=== PATIENT | female | born 1980 | race Caucasian/White ===

== ENCOUNTER → 2018-06-29 18:51 | Outpatient (CLI) | payer MEDICAID, SELFPAY ==
[2018-06-29 19:15] LABS: Basophils % 0.5 % (0.1-2.0); Eosinophils % 0.1 % (0.1-12.0); Hematocrit 44.2 % (37.0-47.0); Hemoglobin 14.3 g/dL (12.2-16.2); Lymphocytes # 1.7 K/mm3 (0.7-4.5); Lymphocytes % 37.3 % (10-50); Mean Corpuscular HGB Conc 32.4 g/dL (31.8-35.4); Mean Corpuscular Volume 98.9 fl (81-99); Mean Platelet Volume 8.2 fl (7.4-10.4); Monocytes # 0.2 K/mm3 (0.1-1.0); Monocytes % 4.8 % (1.7-9.3); Neutrophils # 2.7 K/mm3 (1.8-7.8); Neutrophils % 57.4 % (37.0-80.0); Platelet Count 164 K/mm3 (142-424); Red Blood Count 4.47 M/mm3 (4.20-5.40); Red Cell Distribution Width 13.6 % (11.5-17.5); White Blood Count 4.7 K/mm3 (4.8-10.8)
[2018-06-29 19:28] LABS: Alanine Aminotransferase 38 U/L (12-78); Alkaline Phosphatase 77 U/L (46-116); Aspartate Amino Transferase 16 U/L (15-37); Bilirubin,Total 0.5 mg/dL (0.2-1.0); Blood Urea Nitrogen 11 mg/dL (7-18); Calcium 8.6 mg/dL (8.5-10.1); Carbon Dioxide 26 mmol/L (21.0-32.0); Chloride 102 mmol/L (98-107); Cholesterol 167 mg/dL (140-200); Estimated Glomerular Filt Rate 70 ml/min (>60); GFR (African American) 85 ML/MIN (>60); HDL Cholesterol 56 mg/dL (29-89); LDL Cholesterol 86 mg/dL (0-130); Sodium 137 mmol/L (136-145); Triglycerides 125 mg/dL (30-200); VLDL Cholesterol 25 mg/dL (0-40)
[2018-06-29 19:42] LABS: Glucose 91 mg/dL (74-106)
[2018-06-29 19:49] LABS: Amphetamine/Metha Screen,Urine Negative ng/mL (<1000); Barbiturates Screen,Urine Negative ng/mL (<200); Benzodiazepines Screen,Urine Negative ng/mL (<200); Cannabinoid Screen,Urine Negative ng/mL (<50); Cocaine Screen,Urine Negative ng/mL (<300); Methadone Screen,Urine Negative ng/mL (<300); Opiate Screen,Urine Negative ng/mL (<300); Phencyclidine Screen,Urine Negative ng/mL (<25)
[2018-07-01 21:28] LABS: FSH 7.8 mIU/mL (.); Progesterone 0.1 ng/mL (.)
[2018-07-05 06:48] LABS: Estrogen 83 pg/mL (.)
== END ==
PROVIDERS: Visit Provider Emergency Medicine
DX: I10 Essential (primary) hypertension (principal); Z79.899 Other long term (current) drug therapy
CPT/HCPCS: 80053; 80061; 80305; 82672; 83001; 83002; 84144; 84439; 84443; 85025

== ENCOUNTER → 2018-07-27 17:46 | Outpatient (CLI) | payer MEDICAID, SELFPAY ==
[2018-07-27 19:56] LABS: Amphetamine/Metha Screen,Urine Negative ng/mL (<1000); Barbiturates Screen,Urine Negative ng/mL (<200); Benzodiazepines Screen,Urine Negative ng/mL (<200); Cannabinoid Screen,Urine Negative ng/mL (<50); Cocaine Screen,Urine Negative ng/mL (<300); Methadone Screen,Urine Negative ng/mL (<300); Opiate Screen,Urine Negative ng/mL (<300); Phencyclidine Screen,Urine Negative ng/mL (<25)
[2018-08-03 17:12] LABS: Opiates Negative ng/mL (Cutoff=100)
== END ==
PROVIDERS: Visit Provider Emergency Medicine
DX: Z79.899 Other long term (current) drug therapy (principal)
CPT/HCPCS: 80305; 80361; G0480

== ENCOUNTER → 2018-09-24 18:36 | Outpatient (CLI) | payer MEDICAID, SELFPAY ==
[2018-09-24 19:33] LABS: Amphetamine/Metha Screen,Urine Negative ng/mL (<1000); Barbiturates Screen,Urine Negative ng/mL (<200); Benzodiazepines Screen,Urine Negative ng/mL (<200); Cannabinoid Screen,Urine Negative ng/mL (<50); Cocaine Screen,Urine Negative ng/mL (<300); Methadone Screen,Urine Negative ng/mL (<300); Opiate Screen,Urine Negative ng/mL (<300); Phencyclidine Screen,Urine Negative ng/mL (<25)
[2018-10-01 08:24] LABS: Opiates Negative ng/mL (Cutoff=100)
== END ==
PROVIDERS: Visit Provider Emergency Medicine
DX: Z79.899 Other long term (current) drug therapy (principal); M54.9 Dorsalgia, unspecified
CPT/HCPCS: 80305; 80361; G0480

== ENCOUNTER → 2018-10-24 13:36 | Outpatient (CLI) | payer MEDICAID, SELFPAY ==
[2018-10-24 14:50] LABS: Anion Gap 14.3 mEq/L (5-15); Blood Urea Nitrogen 10 mg/dL (7-18); Calcium 8.4 mg/dL (8.5-10.1); Carbon Dioxide 23 mmol/L (21.0-32.0); Chloride 104 mmol/L (98-107); Creatinine,Serum 1.23 mg/dL (0.55-1.02); Estimated Glomerular Filt Rate 49 ml/min (>60); Free T4 (Free Thyroxine) 1.09 ng/dl (0.76-1.46); GFR (African American) 59 ML/MIN (>60); Glucose 115 mg/dL (74-106); Potassium 4.3 mmoL/L (3.5-5.1); Sodium 137 mmol/L (136-145); Thyroid Stimulating Hormone 2.64 uIU/ml (0.358-3.740)
[2018-10-24 16:28] LABS: Amphetamine/Metha Screen,Urine Negative ng/mL (<1000); Barbiturates Screen,Urine Negative ng/mL (<200); Benzodiazepines Screen,Urine Positive ng/mL (<200); Cannabinoid Screen,Urine Negative ng/mL (<50); Cocaine Screen,Urine Negative ng/mL (<300); Methadone Screen,Urine Negative ng/mL (<300); Opiate Screen,Urine Positive ng/mL (<300); Phencyclidine Screen,Urine Negative ng/mL (<25)
== END ==
PROVIDERS: Visit Provider Emergency Medicine
DX: Z79.899 Other long term (current) drug therapy (principal); E03.9 Hypothyroidism, unspecified
CPT/HCPCS: 80048; 80305; 84439; 84443

== ENCOUNTER → 2018-11-01 10:16 | Outpatient (CLI) | payer MEDICAID, SELFPAY ==
[2018-11-01 14:00] LABS: Blood Urea Nitrogen 8 mg/dL (7-18); Calcium 8.9 mg/dL (8.5-10.1); Carbon Dioxide 25 mmol/L (21.0-32.0); Chloride 104 mmol/L (98-107); Creatinine,Serum 0.88 mg/dL (0.55-1.02); Estimated Glomerular Filt Rate 72 ml/min (>60); GFR (African American) 87 ML/MIN (>60); Glucose 94 mg/dL (74-106); Sodium 142 mmol/L (136-145)
[2018-11-01 15:08] LABS: Hemoglobin A1C 4.1 % (0.0-7.0)
== END ==
PROVIDERS: PCP Emergency Medicine; Visit Provider Emergency Medicine
DX: R06.02 Shortness of breath (principal); E03.9 Hypothyroidism, unspecified; M54.9 Dorsalgia, unspecified; Z79.899 Other long term (current) drug therapy
CPT/HCPCS: 36415; 80048; 83036; 94060

== ENCOUNTER → 2018-11-01 10:56 | Outpatient (CLI) | payer MEDICAID, SELFPAY | PROVIDERS: Visit Provider Emergency Medicine | DX: R73.9 Hyperglycemia, unspecified (principal); R79.89 Other specified abnormal findings of blood chemistry | CPT/HCPCS: 36415; 80048; 83036 ==

== ENCOUNTER → 2018-11-07 07:53 | Outpatient (CLI) | payer MEDICAID, SELFPAY ==
--- NOTE | 2018-11-07 07:56 | MR_ITS ---
MR lumbar spine wo con, MR 3-d myelogram/MRCP HISTORY: Low back pain X years, Bilateral leg pain, numbness and tingling at times. ITS.REASON: back pain ORDERING PHYSICIAN: Kodak Beebe MD PATIENT AGE: 38 years Comparison: None TECHNIQUE: Standard multiplanar multiecho sequences are performed without contrast. 3-D MIP and myelographic images are also rendered and reviewed FINDINGS: IMPRESSION: There is a moderate degree of motion artifact on the sagittal T2-weighted images. The spinal cord ends at the L1 level. L1-L2, L2-L3, and [id number] appearance. L4-5: There is minimal bulging disc laterally and mild facet hypertrophy with mild bilateral foraminal narrowing. L5-S1: Degenerative disc disease with bulging disc. There is a small right paracentral disc herniation which abuts the anteromedial aspect of the right S1 nerve root. There is mild bilateral foraminal narrowing. Type I endplate changes are present at this level. IMPRESSION: 1. Bulging disc with mild bilateral foraminal narrowing at L4-L5. 2. Degenerative disc disease with bulging disc and a small right paracentral disc herniation at L5-S1 with mild bilateral foraminal narrowing and type I endplate changes
== END ==
PROVIDERS: PCP Emergency Medicine; Visit Provider Emergency Medicine
DX: M54.9 Dorsalgia, unspecified (principal)
CPT/HCPCS: 72148; 76376

== ENCOUNTER → 2018-12-24 13:21 | Outpatient (CLI) | payer MEDICAID, SELFPAY ==
[2018-12-24 14:58] LABS: Amphetamine/Metha Screen,Urine Negative ng/mL (<1000); Barbiturates Screen,Urine Negative ng/mL (<200); Benzodiazepines Screen,Urine Negative ng/mL (<200); Cannabinoid Screen,Urine Negative ng/mL (<50); Cocaine Screen,Urine Negative ng/mL (<300); Methadone Screen,Urine Negative ng/mL (<300); Opiate Screen,Urine Positive ng/mL (<300); Phencyclidine Screen,Urine Negative ng/mL (<25)
== END ==
PROVIDERS: Visit Provider Emergency Medicine
DX: Z79.899 Other long term (current) drug therapy (principal)
CPT/HCPCS: 80305

== ENCOUNTER → 2020-01-27 13:41 | Outpatient (CLI) | payer MEDICAID, SELFPAY ==
[2020-01-27 14:25] LABS: Free T4 (Free Thyroxine) 1.21 ng/dl (0.78-2.19)
[2020-01-27 15:09] LABS: Thyroid Stimulating Hormone 1.69 uIU/mL (0.465-4.68)
== END ==
PROVIDERS: Visit Provider Emergency Medicine
DX: E03.9 Hypothyroidism, unspecified (principal)
CPT/HCPCS: 84439; 84443

== ENCOUNTER 2020-06-16 11:31 | Emergency (ER) | payer MEDICAID, SELFPAY ==
[2020-06-16 11:39] VITALS: BP 175/110; PULSE 114; RESP 18; TEMP 36.7; O2SAT 99; BMI 29.1
--- NOTE | 2020-06-16 11:39 | HMH.EDGENADL ---
ED Disposition Clinical Impression: Substance abuse, Left against medical advice Psychosis Qualifiers: Psychosis type: unspecified psychosis type Qualified Code(s): F29 - Unspecified psychosis not due to a substance or known physiological condition Bipolar disorder Qualifiers: Active/Remission status: remission status unspecified Qualified Code(s): F31.9 - Bipolar disorder, unspecified Disposition: Left Against Medical Advice Condition on Discharge: Fair Referrals: Kodak Beebe MD [Primary Care Provider] - - Critical Care Critical Care Time: No Attestation: On , the high probability of a clinically significant, sudden or life threatening deterioration of the following system(s) required my full and direct attention, intervention and personal management. The time I documented below is in addition to time spent performing reported procedures but includes the following listed in this critical care notation. Medical Decision Making - Medical Records Medical records reviewed: Yes: I reviewed the patient's medical records. MR Comment: Collective notification document shows patient has been to [facility] several times. December 31, 2019 lists suicidal ideation, cocaine abuse, alcohol abuse, bipolar disorder, anxiety disorder, as well as essential hypertension and Crohn's disease, hepatitis C, COPD. Visit on April 11, 2020 with his chief complaint as psych. Emergency department visit on December 19 2019 lists altered mental status as chief complaint. - Jan Inquiry Pt receiving controlled substance: No Vital Signs: 06/16/20 11:39 06/16/20 12:57 Temperature 98.1 F Temperature Source Oral Pulse Rate [Right Brachial] 114 H 107 H Respiratory Rate 18 20 Blood Pressure [Right Arm] 175/110 H 156/102 H Blood Pressure Mean [Right Arm] 131 120 Blood Pressure Source [Right Arm] Automatic Cuff Automatic Cuff Blood Pressure Position [Right Arm] Sitting Sitting 02 Sat by Pulse Oximetry 99 99 Oxygen Delivery Method Room Air - Lab Data Lab results reviewed: Yes: I reviewed the patient's lab results. Lab Results 06/16/20 11:45: Ammonia 16 06/16/20 11:46: SARS-CoV-2 IgG Ab (Rapid) Negative, SARS-CoV-2 IgM Ab (Rapid) Negative 06/16/20 11:56: Urine Opiates Screen Negative, Urine Methadone Screen Negative, Ur Barbituates Screen Negative, Ur Phencyclidine Scrn Negative, Ur Amphetamines Screen Negative, U Benzodiazepines Scrn Negative, Urine Cocaine Screen Negative, U Marijuana (THC) Screen Negative 06/16/20 12:30: WBC 5.3, RBC 5.18, Hgb 16.3 H, Hct 49.8 H, MCV 96.2, MCH 31.4 H, MCHC 32.7, RDW 13.3, Plt Count 229, MPV 8.2, Neut % (Auto) 68.3, Lymph % (Auto) 26.9, [place] % (Auto) 3.5, Eos % (Auto) 0.2, Baso % (Auto) 1.1, Neut # (Auto) 3.6, Lymph # (Auto) 1.4, [place] # (Auto) 0.2, Eos # (Auto) 0.0, Baso # (Auto) 0.1 06/16/20 12:30: Sodium 139, Potassium 3.7, Chloride 104, Carbon Dioxide 26, Anion Gap 12.7, BUN 7, Creatinine 0.70, Estimated Creat Clear 134, Estimated GFR 93, Est GFR ( Amer) 112, Glucose 119 H, Calcium 9.9, Total Bilirubin 0.6, AST 36, ALT 22, Alkaline Phosphatase 113, Total Creatine Kinase 40, CK-MB (CK-2) 0.3, CK-MB (CK-2) Rel Index 0.8, Troponin I < 0.01, C-Reactive Protein 2.3, Total Protein 9.4 H, Albumin 5.2 H, Globulin 4.2 H, Albumin/Globulin Ratio 1.2, Salicylates < 1.0 L, Acetaminophen < 10 L 06/16/20 12:30: Lactate 0.8 06/16/20 12:30: Plasma/Serum Alcohol < 10 06/16/20 12:30: ESR 8 06/16/20 12:30: Serum HCG, Qual Negative Result diagrams: 06/16/20 12:30 06/16/20 12:30 Orders (Tests/Meds): ED MEDICATIONS Discontinued Medications Generic Name Dose Route Start Last Admin Trade Name Freq PRN Reason Stop Dose Admin Ondansetron HCl 4 mg 06/16/20 11:55 06/16/20 12:55 Ondansetron 4mg/2ml Vial IV 06/16/20 11:56 4 mg ONCE ONE Administration ORDERS Category Date Time Status Blood Culture Stat Micro 06/16/20 11:45 Received - Radiology Data #1 Image(s): Ingrid
--- NOTE | 2020-06-16 11:46 | CT_ITS ---
PROCEDURE: CT HEAD/BRAIN WO CON CLINICAL INDICATION: altered mental status Altered mental status, altered level of consciousness, confusion, disorientation COMPARISON: No exams were available for comparison TECHNIQUE: Axial images obtained. All CT scans at the facility use one or more dose reduction, viz: automated exposure control, ma/kV adjustment per patient size (including targeted exams where dose is matched to indication, i.e. head), or iterative reconstruction technique. FINDINGS: No midline shift, mass effect, intracranial hemorrhage, hydrocephalus, or extra-axial fluid collection is evident. The calvarium has an unremarkable appearance. No mastoid effusion. No sinus air-fluid level. IMPRESSION: No acute intracranial finding Dictated by: Dallas Morrow MD 06/16/2020 14:01 Dallas Morrow MD in OV 06/16/2020 14:01
--- NOTE | 2020-06-16 11:46 | XR_ITS ---
PROCEDURE: XR CHEST 2V CLINICAL HISTORY: AMS The Altered mental status, altered level of consciousness, confusion, disorientation COMPARISON: No exams were available for comparison FINDINGS: The cardiomediastinal silhouette and pulmonary vascularity are within normal limits. The lungs are clear without infiltrates, suspicious nodules, or pleural effusions. No acute bony abnormalities. IMPRESSION: No acute findings. Dictated by: Dallas Morrow 06/16/2020 15:51 Dallas Morrow in [facility] 06/16/2020 15:51
[2020-06-16 12:14] LABS: Benzodiazepines Screen,Urine Negative ng/ml (<200)
[2020-06-16 12:15] LABS: Amphetamine/Metha Screen,Urine Negative ng/ml (<1000); Barbiturates Screen,Urine Negative ng/ml (<200)
[2020-06-16 12:16] LABS: Cannabinoid Screen,Urine Negative ng/ml (<50)
[2020-06-16 12:17] LABS: Cocaine Screen,Urine Negative ng/ml (<300); Methadone Screen,Urine Negative ng/ml (<300)
[2020-06-16 12:18] LABS: Opiate Screen,Urine Negative ng/ml (<300); Phencyclidine Screen,Urine Negative ng/ml (<25)
[2020-06-16 12:47] LABS: Basophils # 0.1 K/mm3 (0-0.2); Basophils % 1.1 % (0.1-2.0); Eosinophils % 0.2 % (0.1-12.0); Hematocrit 49.8 % (37.0-47.0); Hemoglobin 16.3 g/dL (12.2-16.2); Lymphocytes # 1.4 K/mm3 (0.7-4.5); Lymphocytes % 26.9 % (10-50); Mean Corpuscular HGB Conc 32.7 g/dL (31.8-35.4); Mean Corpuscular Hemoglobin 31.4 pg (27.0-31.2); Mean Corpuscular Volume 96.2 fl (81-99); Mean Platelet Volume 8.2 fl (7.4-10.4); Monocytes # 0.2 K/mm3 (0.1-1.0); Monocytes % 3.5 % (1.7-9.3); Neutrophils # 3.6 K/mm3 (1.8-7.8); Neutrophils % 68.3 % (37.0-80.0); Platelet Count 229 K/mm3 (142-424); Red Blood Count 5.18 M/mm3 (4.20-5.40); Red Cell Distribution Width 13.3 % (11.5-17.5); White Blood Count 5.3 K/mm3 (4.8-10.8)
[2020-06-16 12:53] LABS: Chloride 104 mmol/L (98-107)
[2020-06-16 12:54] LABS: Potassium 3.7 mmoL/L (3.5-5.1); Sodium 139 mmol/L (136-145)
[2020-06-16 12:56] LABS: Alanine Aminotransferase 22 U/L (12-78); Alkaline Phosphatase 113 U/L (38-126); Aspartate Amino Transferase 36 U/L (14-36); Bilirubin,Total 0.6 mg/dl (0.2-1.3); Blood Urea Nitrogen 7 mg/dl (7-17); Creatinine Clearance Estimated 134 mL/min (50-200); Estimated Glomerular Filt Rate 93 ml/min (>60); GFR (African American) 112 ML/MIN (>60)
[2020-06-16 12:57] VITALS: BP 156/102; PULSE 107; RESP 20; O2SAT 99
[2020-06-16 12:57] LABS: Albumin Level 5.2 g/dl (3.5-5.0); Albumin/Globulin Ratio 1.2 (1.1-1.8); Anion Gap 12.7 mEq/L (5-15); Calcium 9.9 mg/dl (8.4-10.2); Carbon Dioxide 26 mmol/L (22.0-30.0); Creatine Kinase 40 U/L (30-135); Globulin 4.2 g/dL (1.3-3.2); Glucose 119 mg/dl (74-100); Total Protein,Serum 9.4 g/dl (6.3-8.2)
[2020-06-16 12:58] LABS: Acetaminophen < 10 ug/ml (10-30); Lactic Acid 0.8 mmol/L (0.7-2.1); Salicylate < 1.0 mg/dL (2.0-20.0)
[2020-06-16 12:59] LABS: Ethyl Alcohol < 10 mg/dl (0-10)
[2020-06-16 13:03] LABS: C-Reactive Protein 2.3 mg/L (0-4)
--- NOTE | 2020-06-16 13:03 | ECG_ITS ---
APPROVED REPORT Exam: Resting ECG HR:96 bpm ECG Measurements Heart Rate 96 AXES MT 104 P 54 QRSd 74 QRS 76 QT 334 T 58 QTc 421 Conclusion Sinus rhythm with short MT Otherwise normal ECG Electronically signed by : Hola Hernandez, 06/17/2020 05:29:12
[2020-06-16 13:05] LABS: CKMB Relative Index 0.8 U/L (0-4.0); Creatine Kinase MB 0.3 ng/ml (0.0-2.03)
[2020-06-16 13:07] LABS: Coronavirus 19 IgG Antibody Negative (Negative); Coronavirus 19 IgM Antibody Negative (Negative)
[2020-06-16 13:10] LABS: Troponin I < 0.01 ng/ml (0.00-0.034)
[2020-06-16 13:18] LABS: HCG Qualitative, Serum Negative (Negative)
[2020-06-16 13:28] LABS: Erythrocyte Sedimentation Rate 8 mm/hr (0-20)
[2020-06-16 13:35] LABS: Ammonia 16 umol/L (9-30)
--- NOTE | 2020-06-16 15:30 | PC.NURSE ---
Pt refuses v/s and will not put b/p cuff and pulse ox on
--- NOTE | 2020-06-16 15:39 | PC.NURSE ---
pt continues to try to leave room, Fransisca west here to speak with Dr Villegas.
--- NOTE | 2020-06-16 15:51 | PC.NURSE ---
[facility]ansisc[facility] Cruz [facility]
--- NOTE | 2020-06-16 16:30 | PC.NURSE ---
Faxed all records over to [facility] for review
--- NOTE | 2020-06-16 16:52 | PC.NURSE ---
[facility] called back advising they were not able to accept pt, that pt had been very agitated at there facility before and had left AMA, they recommended [facility]. Dr Villegas asked to try [facility] assessment with [facility].
--- NOTE | 2020-06-16 16:56 | PC.NURSE ---
Pt continues to refuse v/s
--- NOTE | 2020-06-16 16:59 | HMH.BHCONS ---
*Admission Date: 06/16/20 *Reason for consult:: psychiatric illnesses *History of present illness: I talked to patient at her bedside; she was in room 8. I was asked to come down give recommendations related to her condition. -she is oriented to self and place -she knows that it is June and it is 2019 -she is agitated -constantly fidgety in the room -she states that she wants to go to rehab -she admits to using meth -she states that she does shoot this up -she cannot remember the last use -she did pull up her arms to show me [place] on her arms -these are from the nurses getting blood on her from earlier today -she states that she did complete the program at [facility] but this is not long enough for her -she states that she needs to go some place that is about a year long -I did educate her on the fact that she will have to start at a short term place; then transfer from there -she is agreeable to do this -I did not do a full psychiatric evaluation -she is willing to sign herself in -this is the best option for her right now RECOMMENDATIONS: 1. Transfer to [facility] TIME IN; 154 TIME OUT: [address] [facility] History Medical History: Reports:: Anxiety, Chronic Obstructive Pulmonary Disease (COPD), Depression, Gastroesophageal Reflux Disease(GERD), Hepatitis, Hypertension, Kidney Stones *Have you ever received a pneumonia vaccine?: No *Have you received a flu vaccine this season?: Yes Other Medical History: Reports: Thyroid Disease Other Surgeries: Yes: Colonoscopy, , Other Amputation: No Fractures: No - *Social History Smoking Status: Current every day smoker Tobacco Type: cigarettes # Packs/Day (cigarettes): 1 Alcohol Intake: current Alcohol Intake Frequency:: a few times a week Substance Use Type: IV drugs, opiates, methamphetamine, crack/cocaine, heroin *Occupational Status:: unemployed Housing: homeless *Travel in the last 8 weeks: None - Psychiatric History Pschychiatric History:: Reports:: Anxiety, Depression Family Hx:: Cancer, Heart Attack Meds Home Medications Medication Instructions Recorded Confirmed Type folic acid 1 mg tablet 1 mg PO DAILY 06/18/18 06/16/20 History ondansetron 4 mg oral soluble film 4 mg PO TID PRN 06/18/18 06/16/20 History dicyclomine 10 mg capsule 10 mg PO QID 06/05/19 06/16/20 History sulfasalazine 500 mg tablet 0.5 g PO .8 times a day tab 06/05/19 06/16/20 History hydroxyzine HCl 50 mg tablet 50 mg PO TID tab 09/27/19 06/16/20 History quetiapine 200 mg tablet 200 mg PO QHS tab 10/16/19 06/16/20 History promethazine 25 mg tablet 25 mg PO .[id number] PRN #15 tab 10/22/19 06/16/20 Rx diclofenac sodium 1 % topical gel 1 gram TOPICAL DAILY 02/17/20 06/16/20 History hydrocodone 5 mg-acetaminophen 325 1 tab PO BID PRN #14 tab 04/24/20 06/16/20 Rx mg tablet benzonatate 200 mg capsule 200 mg PO TID PRN 7 Days #21 cap 05/07/20 06/16/20 Rx cefdinir 300 mg capsule 300 mg PO Q12H 10 Days #20 cap 05/07/20 06/16/20 Rx Albuterol Sulfate [Proventil Hfa] See Rx Instructions .ROUTE .COMPLEX 06/16/20 History Buspirone HCl [Buspirone 15 mg See Rx Instructions .ROUTE .COMPLEX 06/16/20 History Tablets] Cyclobenzaprine HCl See Rx Instructions .ROUTE .COMPLEX 06/16/20 History [Cyclobenzaprine 10mg Tab*] Docusate Sodium 100 mg PO DAILY 06/16/20 History Fluticasone Propion/Salmeterol See Rx Instructions .ROUTE .COMPLEX 06/16/20 History [Fluticasone-Salmeterol 250-50] Gabapentin 600 mg PO QID 06/16/20 History Levothyroxine Sodium [Synthroid See Rx Instructions .ROUTE .COMPLEX 06/16/20 History 25mcg (0.025mg) tablet] Nicotine [Nicotine Patch See Rx Instructions .ROUTE .COMPLEX 06/16/20 History 21mg/24hrs] OXcarbazepine [Oxcarbazepine] See Rx Instructions .ROUTE .COMPLEX 06/16/20 History Pantoprazole Sodium See Rx Instructions .ROUTE .COMPLEX 06/16/20 History Ropinirole HCl See Rx Instructions .ROUTE .COMPLEX 12/08/20 History Umeclidinium [place] [Incruse 1 inh INHAL
--- NOTE | 2020-06-16 17:10 | PC.NURSE ---
Calling [facility] to set up zoom assessment
--- NOTE | 2020-06-16 17:17 | PC.NURSE ---
Spoke with Kae the damage prevention coordinator at the [facility] and advises she will get pt info out to one of the assessors and someone will give us a call shortly.
--- NOTE | 2020-06-16 17:46 | PC.NURSE ---
Pt came out into the Er and asked what was going and advised she was ready to leave. I explained to patient that we had contacted [facility] and they had declined her admission at this time. Advised her we had contacted [facility] and was waiting on them to call back to complete a zoom assessment. Pt yelled she was leaving and didn't want to go anywhere anymore. I advised pt to go back into her room so I could remover her IV and then she could leave. Pt went back into the room and ripped her IV out and was bleeding all over the room. Went in to assist patient with bandaging her arm and she started slinging her arm all over the room. Saying she wasn't crazy and she was leaving. Pt finally calmed down and let me wrap her arm in coban. Pt grabbed her bag of medicine and proceeded to walk out of the ER entrance. ER staff and ER MD witnessed this event.
--- NOTE | 2020-06-16 17:55 | PC.NURSE ---
[facility] called and I advised her pt had became upset and decided to leave.
[2020-06-16 17:57] VITALS: BP 0/0; PULSE 87; RESP 16; TEMP 36.6
== END 2020-06-16 17:58 | disposition left against medical advice (07) ==
PROVIDERS: Emergency Provider Emergency Medicine; PCP Emergency Medicine
DX: F29 Unspecified psychosis not due to a substance or known physiological condition (principal); F23 Brief psychotic disorder; F31.64 Bipolar disorder, current episode mixed, severe, with psychotic features; I10 Essential (primary) hypertension; J44.9 Chronic obstructive pulmonary disease, unspecified; K21.9 Gastro-esophageal reflux disease without esophagitis; F17.210 Nicotine dependence, cigarettes, uncomplicated; Z01.84 Encounter for antibody response examination; Z79.899 Other long term (current) drug therapy
CPT/HCPCS: 70450; 71046; 80053; 80305; 80329; 82140; 82550; 82553; 83605; 84484; 84703; 85025; 85651; 86140; 86328; 87040; 93005; 99283; J2405

== ENCOUNTER 2020-06-17 04:33 | Emergency (ER) | payer MEDICAID, SELFPAY ==
[2020-06-17 04:39] VITALS: BP 175/109; PULSE 124; RESP 16; TEMP 37.2; O2SAT 97; BMI 25.7
--- NOTE | 2020-06-17 04:50 | HMH.EDMCLR ---
ED Disposition Clinical Impression: Medical clearance for incarceration Disposition: Home, Self-Care Condition on Discharge: Fair Instructions: DI for Drug Abuse and Drug Addiction Additional Instructions: see pcp for follow up Referrals: PCP,Estela [Primary Care Provider] - - Critical Care Critical Care Time: No Attestation: On 06/17/20, the high probability of a clinically significant, sudden or life threatening deterioration of the following system(s) required my full and direct attention, intervention and personal management. The time I documented below is in addition to time spent performing reported procedures but includes the following listed in this critical care notation. Medical Decision Making - Medical Records Medical records reviewed: Yes: I reviewed the patient's medical records. - Jan Inquiry Pt receiving controlled substance: No Vital Signs: 06/17/20 04:39 Temperature 99 F Temperature Source Oral Pulse Rate [Right] 124 H Respiratory Rate 16 Blood Pressure [Right Arm] 175/109 H Blood Pressure Mean [Right Arm] 131 Blood Pressure Source [Right Arm] Automatic Cuff Blood Pressure Position [Right Arm] Sitting 02 Sat by Pulse Oximetry 97 Oxygen Delivery Method Room Air Medical Clearance HPI - General Chief complaint: Medical Clearance Stated complaint: Medical Clearance Time Seen by Provider: 06/17/20 04:50 Mode of Arrival: Ambulatory Source of Information: Patient, Medical Record Limitations: No Limitations Description of Symptoms (Recalled from ER Triage Doc. by RN): pt brought in for medical clearance by police. pt has shot up amphetamines and says her stomach hurts. - History of Present Illness HPI Narrative: pt awake but did not answer questions - no evid of pain or other c/o MD complaint: medical clearance requested Onset (ago): hour(s) Reason for Medical Clearance: medical condition Place: street Alleged Intoxication: Yes Traumatic Symptoms: denies traumatic injury Associated Symptoms: other (no sx reported ) Treatments Prior to Arrival: none Home medications: Home Medications Medication Instructions Recorded Confirmed folic acid 1 mg tablet 1 mg PO DAILY 06/18/18 06/16/20 ondansetron 4 mg oral soluble film 4 mg PO TID PRN 06/18/18 06/16/20 dicyclomine 10 mg capsule 10 mg PO QID 06/05/19 06/16/20 sulfasalazine 500 mg tablet 0.5 g PO .8 times a day tab 06/05/19 06/16/20 hydroxyzine HCl 50 mg tablet 50 mg PO TID tab 09/27/19 06/16/20 quetiapine 200 mg tablet 200 mg PO QHS tab 10/16/19 06/16/20 diclofenac sodium 1 % topical gel 1 gram TOPICAL DAILY 02/17/20 06/16/20 Albuterol Sulfate [Proventil Hfa] See Rx Instructions .ROUTE .COMPLEX 06/16/20 Buspirone HCl [Buspirone 15 mg See Rx Instructions .ROUTE .COMPLEX 06/16/20 Tablets] Cyclobenzaprine HCl See Rx Instructions .ROUTE .COMPLEX 06/16/20 [Cyclobenzaprine 10mg Tab*] Docusate Sodium 100 mg PO DAILY 06/16/20 Fluticasone Propion/Salmeterol See Rx Instructions .ROUTE .COMPLEX 06/16/20 [Fluticasone-Salmeterol 250-50] Gabapentin 600 mg PO QID 06/16/20 Levothyroxine Sodium [Synthroid See Rx Instructions .ROUTE .COMPLEX 06/16/20 25mcg (0.025mg) tablet] Nicotine [Nicotine Patch See Rx Instructions .ROUTE .COMPLEX 06/16/20 21mg/24hrs] OXcarbazepine [Oxcarbazepine] See Rx Instructions .ROUTE .COMPLEX 06/16/20 Pantoprazole Sodium See Rx Instructions .ROUTE .COMPLEX 06/16/20 Ropinirole HCl See Rx Instructions .ROUTE .COMPLEX 06/16/20 Umeclidinium [place] [Incruse 1 inh INHALATION DAILY 06/16/20 Ellipta] Previous Rx's Medication Instructions Recorded promethazine 25 mg tablet 25 mg PO .[id number] PRN #15 tab 10/22/19 hydrocodone 5 mg-acetaminophen 325 1 tab PO BID PRN #14 tab 04/24/20 mg tablet benzonatate 200 mg capsule 200 mg PO TID PRN 7 Days #21 cap 05/07/20 cefdinir 300 mg capsule 300 mg PO Q12H 10 Days #20 cap 05/07/20 Allergies/Adverse reactions: Allergies Allergy/AdvRe
[2020-06-17 04:58] VITALS: BP 169/89; PULSE 125; RESP 16; TEMP 37.3
== END 2020-06-17 05:05 | disposition home or self-care (01) ==
PROVIDERS: Emergency Provider Emergency Medicine
DX: F19.10 Other psychoactive substance abuse, uncomplicated (principal); R10.30 Lower abdominal pain, unspecified; F41.8 Other specified anxiety disorders; K21.9 Gastro-esophageal reflux disease without esophagitis; E03.9 Hypothyroidism, unspecified; I10 Essential (primary) hypertension; J44.9 Chronic obstructive pulmonary disease, unspecified; F17.210 Nicotine dependence, cigarettes, uncomplicated; Z87.442 Personal history of urinary calculi; Z88.5 Allergy status to narcotic agent; Z01.84 Encounter for antibody response examination
CPT/HCPCS: 99282

== ENCOUNTER → 2020-09-16 18:40 | Outpatient (CLI) | payer MEDICAID, SELFPAY | PROVIDERS: Visit Provider Emergency Medicine | DX: R82.90 Unspecified abnormal findings in urine (principal) | CPT/HCPCS: 87086 ==

== ENCOUNTER → 2020-11-11 12:07 | Outpatient (CLI) | payer MEDICAID, SELFPAY ==
[2020-11-11 13:33] LABS: Coronavirus 19 IgG Antibody Positive (Negative); Coronavirus 19 IgM Antibody Negative (Negative)
== END ==
PROVIDERS: Visit Provider Urology
DX: Z01.812 Encounter for preprocedural laboratory examination (principal); Z20.822 Contact with and (suspected) exposure to COVID-19; R33.9 Retention of urine, unspecified
CPT/HCPCS: 36415; 86328

== ENCOUNTER 2020-11-13 09:58 | Day surgery (SDC) | payer MEDICAID, SELFPAY ==
[2020-11-10 12:25] VITALS: BMI 33.9
[2020-11-13 11:27] LABS: Urine Pregnancy, HCG Qual. Negative (Negative)
[2020-11-13 11:34] VITALS: BP 150/111; PULSE 108; RESP 16; TEMP 36.5; O2SAT 94
--- NOTE | 2020-11-13 13:07 | HMH.ANESCL ---
[facility] Anesthesia Checklist - Patient Identification Patient Identification: Arm Band - Structural Data Admitted From: Home Planned Operative Procedure/s: Cystoscopy Consent for Planned Operative Procedure(s) Verified: Yes Verified Documents: Surgical Consent, History and Physical - NPO Status Verified Time NPO: 00:00 - Additional verifications Anesthesia Reactions: No Hx Blood Transfusions: No Blood Transfusion Reaction: No - Airway Assessment C-Spine Mobility Assessed: Yes (mp2) TMJ Mobility Assessed: Yes Dentition: Good Dentition - Neurological Assessment Level of Consciousness: Awake, Alert - Anesthesia Plan Anesthesia Risk discussed: Yes Anesthesia Plan: Verified ASA Class: III Anesthesia Type: MAC [facility] History Medical History: Reports:: Anxiety, Chronic Obstructive Pulmonary Disease (COPD), Depression, Gastroesophageal Reflux Disease(GERD), Hepatitis, Hypertension, Kidney Stones, Seizures (DRUG RELATED) Denies:: Cancer, Diabetes Mellitus Type 1, Diabetes Mellitus Type 2, Internal Pacemaker, MRSA *Have you ever received a pneumonia vaccine?: No *Have you received a flu vaccine this season?: No Other Medical History: Reports: Thyroid Disease. Denies: Blood Transfusion Reaction Anesthesia experience/problems:: nac Other Surgeries: Yes: Colonoscopy, , Other. No: Pacemaker Amputation: No Fractures: No - *Social History Last grade of school completed: GED Smoking Status: Current every day smoker Tobacco Type: cigarettes # Packs/Day (cigarettes): 2 Alcohol Intake: current Alcohol Intake Frequency:: a few times a month Substance Use Type: crack/cocaine, opiates, painkillers, IV drugs, methamphetamine, prescription drug *Occupational Status:: unemployed Housing: house Household Members: family *Travel in the last 8 weeks: None - Psychiatric History Pschychiatric History:: Reports:: Anxiety, Depression Family Hx:: Cancer, Heart Attack
[2020-11-13 13:20] VITALS: BP 126/76; PULSE 101; RESP 18; TEMP 37.1; O2SAT 93
--- NOTE | 2020-11-13 13:29 | P.OP_ITS ---
Date of procedure: 11/13/20 Pre-op Diagnosis:: Urinary slowing, dysuria, incomplete bladder emptying Post-op Diagnosis:: Urethral stenosis Procedure performed:: Cystoscopy with urethral dilation Surgeon:: Wilfred Tai MD CONSTRUCTION CONTROLLER:: Micah Kirby Anesthesia: MAC Estimated blood loss (mL): 0 Clinical Note:: 40-year-old white female with history of urethral stenosis now with symptoms of urinary slowing, dysuria and post void residual of 242 cc. Operative findings:: There is evidence of urethral stenosis. The bladder was within normal limits however. Operative note:: Patient taken to the operating room after informed consent was obtained. She was placed on the operating table in the supine position and monitored anesthesia care administered. She was then placed into the dorsal lithotomy position and prepped and draped in the standard surgical fashion. The urethral meatus appeared stenotic and the 22 Estonian scope would not pass easily. The urethra was dilated from 22-30 Estonian with female dilators. Little trauma was noted with a little bit of bleeding with the 28 and 30 Estonian sounds. The 22 Estonian cystoscope then passed into the urethra and into the bladder. The bladder was examined in a systematic fashion. There is no evidence of mucosal abnormalities, stones, trabeculation or cellule formation. The ureteral orifices in their normal anatomic position and of normal shape and caliber. The bladder neck showed some urethral fronds that are benign. The urethra was normal visually. The bladder drained the scope removed. Urojet placed into the urethra for comfort. Patient tolerated procedure well without complication. I am going to place her on a course of bethanechol 25 mg twice a day. I will see her back in 1 month in follow-up. Condition: stable Disposition: same day Specimens:: None Complications:: None
[2020-11-13 13:35] VITALS: BP 127/92; PULSE 100; RESP 18; O2SAT 95
[2020-11-13 13:42] VITALS: TEMP 43
[2020-11-13 13:50] VITALS: BP 120/79; PULSE 98; RESP 18; O2SAT 100
== END 2020-11-13 13:50 | disposition home or self-care (01) ==
LOC: OR 10:00
PROVIDERS: PCP Emergency Medicine; Visit Provider Urology
PROC: 0TJB8ZZ Inspection of Bladder, Via Natural or Artificial Opening Endoscopic (ICD-10-PCS; CPT 52000; principal; 2020-11-13 11:30)
DX: N35.92 Unspecified urethral stricture, female; F41.9 Anxiety disorder, unspecified; J44.9 Chronic obstructive pulmonary disease, unspecified; F32.9 Major depressive disorder, single episode, unspecified; K21.9 Gastro-esophageal reflux disease without esophagitis; I10 Essential (primary) hypertension; K75.9 Inflammatory liver disease, unspecified; G40.89 Other seizures; E07.9 Disorder of thyroid, unspecified; Z87.442 Personal history of urinary calculi; Z72.0 Tobacco use; F14.90 Cocaine use, unspecified, uncomplicated; F11.90 Opioid use, unspecified, uncomplicated; F19.90 Other psychoactive substance use, unspecified, uncomplicated
CPT/HCPCS: 52281; 81025; 96374

== ENCOUNTER → 2020-12-14 17:48 | Outpatient (CLI) | payer MEDICAID, SELFPAY ==
[2020-12-14 19:39] LABS: Amphetamine/Metha Screen,Urine Negative ng/ml (<1000)
[2020-12-14 19:40] LABS: Benzodiazepines Screen,Urine Negative ng/ml (<200)
[2020-12-14 19:41] LABS: Barbiturates Screen,Urine Negative ng/ml (<200); Cannabinoid Screen,Urine Negative ng/ml (<50)
[2020-12-14 19:42] LABS: Cocaine Screen,Urine Negative ng/ml (<300)
[2020-12-14 19:43] LABS: Methadone Screen,Urine Negative ng/ml (<300); Opiate Screen,Urine Negative ng/ml (<300)
[2020-12-14 19:44] LABS: Phencyclidine Screen,Urine Negative ng/ml (<25)
== END ==
PROVIDERS: Visit Provider Emergency Medicine
DX: Z79.899 Other long term (current) drug therapy (principal)
CPT/HCPCS: 80305

== ENCOUNTER → 2021-11-30 15:12 | Outpatient (CLI) | payer MEDICAID, SELFPAY ==
--- NOTE | 2021-11-30 15:13 | MM_ITS ---
PROCEDURE INFORMATION: Exam: MG Bilateral Screening 3D Mammography Exam date and time: 11/30/2021 3:09 PM Age: 41 years old Clinical indication: Screening examination TECHNIQUE: Imaging protocol: Bilateral Screening tomosynthesis and 2D mammography including computer-aided detection (CAD) when performed. COMPARISON: No relevant prior studies available. FINDINGS: MAMMOGRAPHY: Breast composition: There are scattered areas of fibroglandular density. Mass: None. Architectural distortion: None. Calcifications: No suspicious calcifications. Asymmetric density: None. Skin thickening: None. Axillary adenopathy: None. IMPRESSION: No mammographic evidence of malignancy. Annual screening is recommended unless otherwise clinically indicated. ASSESSMENT: BI-RADS Category 1: Negative
--- NOTE | 2021-11-30 15:27 | XR_ITS ---
FINAL REPORT TECHNIQUE: Bone densitometry calculations of the lumbar spine and left hip were obtained. CLINICAL HISTORY: .hx of depo provera mcc use FINDINGS: Using L1-4, the bone mineral density of the spine is 0.882 g/cm2, corresponding to T-score of -1.5. Measurements consistent with osteopenia. Using the left hip, the bone mineral density of the femoral neck is 0.856 g/cm2, corresponding to a T-score of -0.7. Measurements consistent with normal bone mineral density. NOTE: T-score: Standard deviation compared with peak bone mass of young adult mean. *Following the recommendations of the International Society of Bone densitometry, classification of hip BMD is based on the lower of two T-scores; total hip or femoral neck. IMPRESSION: Diminished bone mineral density of the lumbar spine consistent with osteopenia. Normal bone mineral density of the left hip. FRAX 10 year fracture risk is 3.3 % for major osteoporotic fracture. Reviewed, Interpreted and Dictated by Janee Valentin MD Transcribed by Grace Savage Authenticated by Janee Valentin MD on 11/30/2021 04:59:02 PM [facility]
== END ==
PROVIDERS: PCP Emergency Medicine; Visit Provider Emergency Medicine
DX: Z12.31 Encounter for screening mammogram for malignant neoplasm of breast (principal); M85.89 Other specified disorders of bone density and structure, multiple sites
CPT/HCPCS: 77063; 77067; 77080

== ENCOUNTER 2021-12-26 18:59 | Emergency (ER) | payer MEDICAID, SELFPAY ==
[2021-12-26 20:09] VITALS: BP 0/0; PULSE 0; RESP 0; TEMP -17.7; TEMP 0; O2SAT 0
== END 2021-12-27 00:07 | disposition left against medical advice (07) ==
PROVIDERS: Emergency Provider Emergency Medicine
DX: Z53.21 Procedure and treatment not carried out due to patient leaving prior to being seen by health care provider (principal)

== ENCOUNTER 2021-12-26 20:20 | Emergency (ER) | payer MEDICAID, SELFPAY ==
[2021-12-26 23:58] VITALS: BP 0/0; PULSE 0; RESP 0; TEMP -17.7; TEMP 0; O2SAT 0
== END 2021-12-27 00:01 | disposition left against medical advice (07) ==
PROVIDERS: Emergency Provider Emergency Medicine; PCP Emergency Medicine
DX: Z53.21 Procedure and treatment not carried out due to patient leaving prior to being seen by health care provider (principal)

== ENCOUNTER 2021-12-26 22:51 | Emergency (ER) | payer MEDICAID, SELFPAY ==
[2021-12-26 22:53] VITALS: BP 121/88; PULSE 120; RESP 20; TEMP 37.2; O2SAT 99; BMI 34.9
[2021-12-26 23:19] VITALS: BMI 34.4
--- NOTE | 2021-12-26 23:21 | CT_ITS ---
PROCEDURE INFORMATION: Exam: CT Abdomen And Pelvis Without Contrast Exam date and time: 12/27/2021 12:11 AM Age: 41 years old Clinical indication: Abdominal pain; Localized; Lower; Additional info: Vaginal low abd complaints TECHNIQUE: Imaging protocol: Computed tomography of the abdomen and pelvis without contrast. Radiation optimization: All CT scans at this facility use at least one of these dose optimization techniques: automated exposure control; mA and/or kV adjustment per patient size (includes targeted exams where dose is matched to clinical indication); or iterative reconstruction. COMPARISON: FINDINGS: Liver: Hepatic steatosis. Gallbladder and bile ducts: Normal. No calcified stones. No ductal dilation. Pancreas: Normal. No ductal dilation. Spleen: Upper limits of normal spleen size. Adrenal glands: Normal. No mass. Kidneys and ureters: Normal. No hydronephrosis. Stomach and bowel: Unremarkable. No obstruction. No mucosal thickening. Appendix: Unremarkable appendix. Intraperitoneal space: Unremarkable. No free air. No significant fluid collection. Vasculature: Mild atherosclerotic changes of the arteries. Lymph nodes: Unremarkable. No enlarged lymph nodes. Urinary bladder: Unremarkable as visualized. Reproductive: Unremarkable as visualized. Bones/joints: Unremarkable. No acute fracture. Soft tissues: Tiny fat containing umbilical hernia. IMPRESSION: 1. No acute findings. 2. Hepatic steatosis.
[2021-12-26 23:26] LABS: Microscopic, Urine URINE MICROSCOPIC (MICROSCOPIC)
--- NOTE | 2021-12-26 23:26 | PC.NURSE ---
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 Dispatch was called and they advised they would call them.
[2021-12-26 23:29] LABS: Appearance,Urine CLEAR (Clear); Bilirubin,Urine Negative (Negative); Blood, Urine Negative (Negative); Color,Urine YELLOW (Yellow); Glucose,Urine (UA) Negative (Negative); Ketones,Urine Negative (Negative); Leukocyte Esterase,Urine Negative (Negative); Nitrate,Urine Negative (Negative); PH,Urine 6.5 (5.0-8.5); Protein,Urine Negative (Negative); Specific Gravity, Urine <= 1.005 (1.005-1.030); Urobilinogen,Urine 0.2 EU/dl (0.2)
--- NOTE | 2021-12-26 23:29 | PC.NURSE ---
Shilpa at dispatch advised she called the post and they would let their troopers know.
[2021-12-26 23:32] LABS: Urine Pregnancy, HCG Qual. Negative (Negative)
[2021-12-26 23:36] LABS: RBC,Urine Occasional #/hpf (0-3)
[2021-12-26 23:40] LABS: Barbiturates Screen,Urine Negative ng/ml (<200); Benzodiazepines Screen,Urine Positive ng/ml (<200)
[2021-12-26 23:41] LABS: Amphetamine/Metha Screen,Urine Negative ng/ml (<1000)
[2021-12-26 23:42] LABS: Cannabinoid Screen,Urine Negative ng/ml (<50); Cocaine Screen,Urine Negative ng/ml (<300)
[2021-12-26 23:43] LABS: Methadone Screen,Urine Negative ng/ml (<300)
[2021-12-26 23:44] LABS: Opiate Screen,Urine Negative ng/ml (<300); Phencyclidine Screen,Urine Negative ng/ml (<25)
--- NOTE | 2021-12-26 23:44 | PC.NURSE ---
pt states that she has a feeling something is wrong and when I stuck her for her IV she pulled away and took the needle out of my hand and out of her arm.
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
[2021-12-27 00:21] LABS: Basophils # 0.2 K/mm3 (0-0.2); Basophils % 3.5 % (0.1-2.0); Eosinophils # 0.1 K/mm3 (0.0-0.4); Eosinophils % 2.1 % (0.1-12.0); Hemoglobin 15.1 g/dL (12.2-16.2); Lymphocytes # 1.7 K/mm3 (0.7-4.5); Lymphocytes % 25.9 % (10-50); Mean Corpuscular HGB Conc 34.2 g/dL (31.8-35.4); Mean Corpuscular Hemoglobin 29.1 pg (27.0-31.2); Mean Corpuscular Volume 85.1 fl (81-99); Mean Platelet Volume 7.7 fl (7.4-10.4); Monocytes # 0.3 K/mm3 (0.1-1.0); Monocytes % 3.9 % (1.7-9.3); Neutrophils # 4.3 K/mm3 (1.8-7.8); Neutrophils % 64.6 % (37.0-80.0); Platelet Count 226 K/mm3 (142-424); Red Blood Count 5.17 M/mm3 (4.20-5.40); Red Cell Distribution Width 14.3 % (11.5-17.5); White Blood Count 6.6 K/mm3 (4.8-10.8)
[2021-12-27 00:27] LABS: Alanine Aminotransferase 25 U/L (12-78); Albumin Level 4.6 g/dl (3.5-5.0); Albumin/Globulin Ratio 1.1 (1.1-1.8); Alkaline Phosphatase 96 U/L (38-126); Amylase 56 U/L (30-110); Aspartate Amino Transferase 34 U/L (14-36); Bilirubin,Total 0.8 mg/dl (0.2-1.3); Blood Urea Nitrogen 6 mg/dl (7-17); Calcium 9.3 mg/dl (8.4-10.2); Carbon Dioxide 27 mmol/L (22.0-30.0); Chloride 101 mmol/L (98-107); Creatinine Clearance Estimated 194 mL/min (50-200); Estimated Glomerular Filt Rate 110 ml/min (>60); GFR (African American) 133 ML/MIN (>60); Globulin 4.1 g/dL (1.3-3.2); Glucose 100 mg/dl (74-100); Lipase 57 U/L (23-300); Sodium 138 mmol/L (136-145); Total Protein,Serum 8.7 g/dl (6.3-8.2)
[2021-12-27 00:33] LABS: C-Reactive Protein 9.6 mg/L (0-4)
--- NOTE | 2021-12-27 00:42 | PC.NURSE ---
[employer] at
[2021-12-27 00:44] LABS: Erythrocyte Sedimentation Rate 17 mm/hr (0-20)
--- NOTE | 2021-12-27 00:58 | PC.NURSE ---
Pt given Gatorade to drink. No other needs at this time.
--- NOTE | 2021-12-27 01:26 | PC.NURSE ---
Pt walking around room talking to herself and telling us she wants the flies out of her room.
--- NOTE | 2021-12-27 01:34 | PC.NURSE ---
Pt refusing vital signs at this time
[2021-12-27 01:44] VITALS: BP 179/105; PULSE 120; RESP 18; TEMP 37.1; O2SAT 98
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
[2021-12-27 01:58] LABS: Valproic Acid, (Depakene) < 10.0 ug/ml (50-100)
--- NOTE | 2021-12-27 03:55 | PC.NURSE ---
[facility] called to get patient information post transfer as patient is unwilling to speak to staff. Patient would not speak to them regarding a release of information. Called Camilo with [employer] and was told that it was acceptable to fax the information since we were sending the information to another facility in an emergent setting.
== END 2021-12-27 02:14 | disposition home or self-care (01) ==
PROVIDERS: Emergency Provider Emergency Medicine; PCP Emergency Medicine
DX: R10.84 Generalized abdominal pain (principal); F22 Delusional disorders
CPT/HCPCS: 74176; 80053; 80164; 80305; 81001; 81025; 82150; 83690; 84145; 85025; 85651; 86140; 99284

== ENCOUNTER → 2022-05-10 07:44 | Outpatient (CLI) | payer MEDICAID, SELFPAY ==
[2022-05-10 08:30] VITALS: PULSE 92; PULSE 99
== END ==
PROVIDERS: PCP Emergency Medicine; Visit Provider Emergency Medicine
DX: J44.9 Chronic obstructive pulmonary disease, unspecified (principal)
CPT/HCPCS: 94060; 94618; 94640; 94727; 94729

== ENCOUNTER → 2022-05-25 14:20 | Outpatient (CLI) | payer MEDICAID, SELFPAY ==
[2022-05-25 14:01] LABS: Coronavirus 19, PCR Not Detected (NotDetected); Influenza A, PCR Not Detected (NotDetected); Influenza B, PCR Not Detected (NotDetected)
== END ==
PROVIDERS: PCP Emergency Medicine; Visit Provider Emergency Medicine
DX: R09.89 Other specified symptoms and signs involving the circulatory and respiratory systems (principal)
CPT/HCPCS: C9803; U0003; U0005

== ENCOUNTER → 2023-05-10 23:38 | Outpatient (CLI) | payer MEDICAID, SELFPAY ==
[2023-05-10 19:51] LABS: Basophils % 0.4 % (0.1-2.0); Eosinophils % 0.2 % (0.1-12.0); Hematocrit 34.3 % (37.0-47.0); Hemoglobin 11.8 g/dL (12.2-16.2); Lymphocytes # 1.4 K/mm3 (0.7-4.5); Lymphocytes % 38.9 % (10-50); Mean Corpuscular HGB Conc 34.5 g/dL (31.8-35.4); Mean Corpuscular Hemoglobin 30.8 pg (27.0-31.2); Mean Corpuscular Volume 89.2 fl (81-99); Monocytes # 0.2 K/mm3 (0.1-1.0); Monocytes % 5.1 % (1.7-9.3); Neutrophils # 2.1 K/mm3 (1.8-7.8); Neutrophils % 55.3 % (37.0-80.0); Platelet Count 187 K/mm3 (142-424); Red Blood Count 3.84 M/mm3 (4.20-5.40); Red Cell Distribution Width 13.5 % (11.5-17.5); White Blood Count 3.7 K/mm3 (4.8-10.8)
[2023-05-10 20:11] LABS: Alanine Aminotransferase 41 U/L (12-78); Albumin/Globulin Ratio 1.4 (1.1-1.8); Alkaline Phosphatase 77 U/L (38-126); Anion Gap 11.6 mEq/L (5-15); Aspartate Amino Transferase 36 U/L (14-36); Bilirubin,Total 0.3 mg/dl (0.2-1.3); Blood Urea Nitrogen 5 mg/dl (7-17); Calcium 8.2 mg/dl (8.4-10.2); Carbon Dioxide 29 mmol/L (22.0-30.0); Chloride 97 mmol/L (98-107); Chol/HDL Ratio 3.5 (1-3.5); Cholesterol 120 mg/dl (140-200); Estimated Glomerular Filt Rate 135 ml/min (>60); GFR (African American) 163 ML/MIN (>60); Globulin 2.9 g/dL (1.3-3.2); Glucose 80 mg/dl (74-100); HDL Cholesterol 34 mg/dl (40-60); Potassium 3.6 mmoL/L (3.5-5.1); Sodium 134 mmol/L (136-145); Total Protein,Serum 6.9 g/dl (6.3-8.2); Triglycerides 141 mg/dl (30-150); VLDL Cholesterol 28 mg/dL (0-40)
[2023-05-10 20:22] LABS: Direct LDL Cholesterol 63.28 mg/dL (100-129)
[2023-05-10 20:28] LABS: 25-OH Vitamin D, Total 44.8 ng/mL (30-100)
[2023-05-10 20:41] LABS: Thyroid Stimulating Hormone 2.55 uIU/mL (0.465-4.68)
== END ==
PROVIDERS: PCP Emergency Medicine; Visit Provider Emergency Medicine
DX: Z00.00 Encounter for general adult medical examination without abnormal findings (principal); Z68.33 Body mass index [BMI] 33.0-33.9, adult
CPT/HCPCS: 80053; 80061; 82306; 84443; 85025

== ENCOUNTER → 2023-05-29 13:32 | Outpatient (CLI) | payer MEDICAID, SELFPAY ==
--- NOTE | 2023-05-29 13:35 | MM_ITS ---
PROCEDURE INFORMATION: Exam: MG Bilateral Screening 3D Mammography Exam date and time: 05/29/2023 1:22 PM Age: 43 years old Clinical indication: Screening examination TECHNIQUE: Imaging protocol: Bilateral Screening tomosynthesis and 2D mammography including computer-aided detection (CAD) when performed. COMPARISON: MG MM DIG SCREENING MAMM BI W/CAD 11/30/2021 3:09 PM FINDINGS: MAMMOGRAPHY: Breast composition: There are scattered areas of fibroglandular density. Mass: None. Architectural distortion: None. Calcifications: No suspicious calcifications. Asymmetric density: None. Skin thickening: None. Axillary adenopathy: None. IMPRESSION: No mammographic evidence of malignancy. Annual screening is recommended unless otherwise clinically indicated. ASSESSMENT: BI-RADS Category 1: Negative
== END ==
PROVIDERS: PCP Emergency Medicine; Visit Provider Nurse Practitioner Obstetrics & Gynecology
DX: Z12.31 Encounter for screening mammogram for malignant neoplasm of breast (principal)
CPT/HCPCS: 77063; 77067

== ENCOUNTER 2023-08-21 22:02 | Outpatient (CLI) | payer MEDICAID, SELFPAY ==
[2023-08-21 18:24] LABS: Basophils % 0.4 % (0.1-2.0); Eosinophils % 0.2 % (0.1-12.0); Hematocrit 39.3 % (37.0-47.0); Hemoglobin 13.5 g/dL (12.2-16.2); Lymphocytes # 1.7 K/mm3 (0.7-4.5); Lymphocytes % 30.7 % (10-50); Mean Corpuscular HGB Conc 34.3 g/dL (31.8-35.4); Mean Corpuscular Hemoglobin 30.3 pg (27.0-31.2); Mean Corpuscular Volume 88.4 fl (81-99); Monocytes # 0.2 K/mm3 (0.1-1.0); Monocytes % 3.8 % (1.7-9.3); Neutrophils # 3.6 K/mm3 (1.8-7.8); Neutrophils % 64.9 % (37.0-80.0); Platelet Count 233 K/mm3 (142-424); Red Blood Count 4.45 M/mm3 (4.20-5.40); Red Cell Distribution Width 13.8 % (11.5-17.5); White Blood Count 5.5 K/mm3 (4.8-10.8)
[2023-08-21 20:48] LABS: Vitamin B12 420 pg/mL (239-931)
[2023-08-21 22:39] LABS: Ferritin 76.1 ng/ml (6.24-137)
[2023-08-23 06:42] LABS: HIV Screen 4th Generation wRfx Non Reactive (Non Reactive)
[2023-08-25 15:15] LABS: HBsAg Screen Negative (Negative); HCV Ab Reactive (Non Reactive); Hep A Ab, IGM Negative (Negative); Hep B Core Ab, IgM Negative (Negative)
== END 2023-08-21 23:59 ==
LOC: LAB.DROPOF 22:02
PROVIDERS: PCP Internal Medicine; Visit Provider Internal Medicine
DX: B19.20 Unspecified viral hepatitis C without hepatic coma (principal); Z79.899 Other long term (current) drug therapy; Z11.4 Encounter for screening for human immunodeficiency virus [HIV]
CPT/HCPCS: 80074; 82607; 82728; 84443; 85025; 86703; G0432

== ENCOUNTER 2023-09-11 09:32 | Outpatient (CLI) | payer MEDICAID, SELFPAY ==
--- NOTE | 2023-09-11 10:48 | XR_ITS ---
FINAL REPORT TECHNIQUE: Bone mineral density was calculated of the lumbar spine and hip. CLINICAL HISTORY: osteoporosis extermination supervisor depot use COMPARISON: 11/30/2021 FINDINGS: Using L1-4, the bone mineral density of the spine is 0.95 g/cm2, corresponding to T-score of -0.9. Using the 0.9 hip, the bone mineral density of the femoral neck is 0.9 g/cm2, corresponding to a T-score of -0.3. NOTE: T-score: Standard deviation compared with peak bone mass of young adult mean. *Following the recommendations of the International Society of Bone densitometry, classification of hip BMD is based on the lower of two T-scores; total hip or femoral neck. IMPRESSION: Normal bone mineral density of the lumbar spine and left hip. Reviewed, Interpreted and Dictated by Javad Holden III, MD Transcribed by Debra Borden Authenticated and [facility]
== END 2023-09-11 23:59 ==
LOC: RAD 09:32
PROVIDERS: PCP Internal Medicine; Visit Provider Internal Medicine
DX: M81.0 Age-related osteoporosis without current pathological fracture (principal)
CPT/HCPCS: 77080

== ENCOUNTER 2023-11-14 11:17 | Outpatient (CLI) | payer MEDICAID, SELFPAY ==
[2023-11-14 19:08] LABS: Alanine Aminotransferase 128 U/L (12-78); Albumin Level 4.3 g/dl (3.5-5.0); Albumin/Globulin Ratio 1.3 (1.1-1.8); Alkaline Phosphatase 70 U/L (38-126); Aspartate Amino Transferase 110 U/L (14-36); Bilirubin,Total 0.9 mg/dl (0.2-1.3); Blood Urea Nitrogen 7 mg/dl (7-17); Carbon Dioxide 20 mmol/L (22.0-30.0); Chloride 98 mmol/L (98-107); Estimated Glomerular Filt Rate 135 ml/min (>60); GFR (African American) 163 ML/MIN (>60); Globulin 3.3 g/dL (1.3-3.2); Glucose 162 mg/dl (74-100); Sodium 133 mmol/L (136-145); Total Protein,Serum 7.6 g/dl (6.3-8.2)
[2023-11-14 19:38] LABS: Thyroid Stimulating Hormone 0.87 uIU/mL (0.465-4.68)
[2023-11-14 19:58] LABS: Basophils # 0.1 K/mm3 (0-0.2); Basophils % 1.4 % (0.1-2.0); Eosinophils % 0.3 % (0.1-12.0); Hematocrit 44.2 % (37.0-47.0); Hemoglobin 13.9 g/dL (12.2-16.2); Lymphocytes % 27.6 % (10-50); Mean Corpuscular HGB Conc 31.5 g/dL (31.8-35.4); Mean Corpuscular Hemoglobin 30.1 pg (27.0-31.2); Mean Corpuscular Volume 95.4 fl (81-99); Mean Platelet Volume 9.1 fl (7.4-10.4); Monocytes # 0.1 K/mm3 (0.1-1.0); Neutrophils # 2.4 K/mm3 (1.8-7.8); Neutrophils % 66.7 % (37.0-80.0); Platelet Count 180 K/mm3 (142-424); Red Blood Count 4.64 M/mm3 (4.20-5.40); Red Cell Distribution Width 13.4 % (11.5-17.5); White Blood Count 3.6 K/mm3 (4.8-10.8)
== END 2023-11-14 23:59 | disposition home or self-care (01) ==
LOC: LAB.DROPOF 11-15 11:18
PROVIDERS: PCP Internal Medicine; Visit Provider Internal Medicine
DX: R10.84 Generalized abdominal pain (principal); N39.0 Urinary tract infection, site not specified; Z79.899 Other long term (current) drug therapy
CPT/HCPCS: 80053; 84443; 85025; 87086

== ENCOUNTER 2023-12-12 21:30 | Outpatient (CLI) | payer MEDICAID, SELFPAY | END 2023-12-12 23:59 | disposition home or self-care (01) | LOC: LAB.DROPOF 21:32 | PROVIDERS: PCP Nurse Practitioner Family; Visit Provider Nurse Practitioner Family | DX: N39.0 Urinary tract infection, site not specified (principal) | CPT/HCPCS: 87086 ==

== ENCOUNTER 2024-01-04 17:49 | Emergency (ER) | payer MEDICAID, SELFPAY ==
[2024-01-04 17:50] VITALS: BP 146/111; PULSE 110; RESP 19; TEMP 36.8; O2SAT 95; BMI 32.1
--- NOTE | 2024-01-04 17:52 | ED_ITS ---
<Statement entered by Martine Mckenna MD - 01/04/24 23:00> I was consulted by the ALLYSON, and we discussed the complexity of the problems being addressed. I approved the treatment and management plan for this patient's care in the emergency department, thus performing a substantive portion of the medical decision making. Martine Mckenna MD, SILVESTRE, FACEP Discharge Plan Disposition Patient Disposition: Home, Self-Care Condition: Good Prescriptions Prescriptions: New sulfamethoxazole-trimethoprim [Bactrim DS] 800-160 mg tablet 1 tab PO BID 7 Days Qty: 14 0RF ondansetron 4 mg tablet,disintegrating 4 mg PO Q6H PRN (Reason: nausea and vomiting) Qty: 10 0RF No Action buprenorphine-naloxone 8-2 mg film 2 film SUBLINGUAL Patient Comments: PLAE 2 FILMS UNDER THE TONGUE EVERY DAY Nexplanon 68 mg implant 68 mg subdermal ONCE potassium chloride 20 mEq packet PO Patient Comments: DISSOLVE CONTENTS OF 1 PACKET IN 6 OZ OF WATER OR JUICE AND DRINK ONCE A DAY AFTER MEAL diazepam 5 mg tablet 2.5 mg PO TID PRN (Reason: anxiety) 30 Days Qty: 45 0RF diclofenac sodium 1 % gel 2 g topical QID Qty: 100 0RF Rx Instructions: apply to single elbow, wrist or hand; for hand includes palm/fingers/back of hand gabapentin 800 mg tablet 800 mg PO TID 30 Days Qty: 90 0RF levothyroxine 25 mcg tablet See Rx Instructions .ROUTE .COMPLEX Qty: 90 0RF Dose Instruction: TAKE ONE TABLET BY MOUTH EVERY DAY Rx Instructions: TAKE ONE TABLET BY MOUTH EVERY DAY lidocaine 5 % adhesive patch,medicated 1 patch topical DAILY Qty: 30 0RF Rx Instructions: leave on most painful area for up to 12 hrs lisinopril 10 mg tablet 10 mg PO BID Qty: 180 2RF mesalamine [Lialda] 1.2 gram tablet,delayed release (DR/EC) 4.8 g PO DAILY 90 Days Qty: 360 1RF oxcarbazepine 600 mg tablet 600 mg PO BID Qty: 60 2RF pantoprazole [Protonix] 40 mg tablet,delayed release (DR/EC) 40 mg PO BID Qty: 90 1RF quetiapine 200 mg tablet 200 mg PO HS Qty: 30 0RF lidocaine HCl [Lidocaine Viscous] 2 % solution 10 ml mucous membrane TID 5 Days Qty: 100 0RF Rx Instructions: with water ondansetron 8 mg tablet,disintegrating 8 mg PO Q12H PRN (Reason: nausea and vomiting) Qty: 30 3RF Trelegy Ellipta 100-62.5-25 mcg blister with device 1 inh inhalation DAILY Qty: 60 2RF albuterol sulfate 90 mcg/actuation HFA aerosol inhaler See Rx Instructions .ROUTE .COMPLEX Qty: 8.5 4RF Dose Instruction: INHALE 2 PUFFS BY MOUTH EVERY 4-6 HOURS NEEDED FOR SHORTNESS OF BREATH OR WHEEZING Rx Instructions: INHALE 2 PUFFS BY MOUTH EVERY 4-6 HOURS NEEDED FOR SHORTNESS OF BREATH OR WHEEZING ipratropium-albuterol 0.5 mg-3 mg(2.5 mg base)/3 mL solution for nebulization 3 ml INHALATION Q8H PRN (Reason: shortness of breath or wheezing) Qty: 180 3RF Referrals Follow up/Referrals: Alejo Ya DO [Primary Care Provider] - See instructions Activity Restrictions/Add. Instructions Additional Instructions/Restrictions: Please follow-up with your PCP within 1 week. Please follow-up with your CLASSROOM MONITOR sooner for your symptoms. Return to ER for any worsening signs or symptoms. Clinical Impressions Clinical Impression: UTI (urinary tract infection) Qualifiers: Urinary tract infection type: site unspecified Hematuria presence: with hematuria Qualified Code(s): N39.0 - Urinary tract infection, site not specified Instructions Patient Instructions: DI for Urinary Tract Infection (UTI) Discharge ED Provider: Martine Mckenna General Adult HPI General Chief complaint: Abdominal Pain Stated complaint: stomach pain, nausea Time Seen by Provider: 01/04/24 17:52 History of Present Illness HPI narrative: Patient presents for evaluation of multiple complaints. Patient states that she has something wrong down there including I am not pooping right , I can't eat anything but Sprite , and reports vaginal discharge along with various and sundry complaints that have been ongoing for months . Nothing acutely new today and patient cannot elucidate as to what specifically brought her to the emergency department today. Patient does have a PCP and an CLASSROOM MONITOR both of whom she has not seen for these problems. Patient currently denies chest pain shortness of breath fever chills hemoptysis hematochezia melena hematemesis Related Data Home Medications Medication Instructions Recorded Confirmed buprenorphine 8 mg-naloxone 2 mg 2 film sublingual 11/05/21 12/12/23 sublingual film etonogestrel 68 mg subdermal 68 mg subdermal ONCE 05/10/23 12/12/23 implant (Nexplanon) potassium chloride 20 mEq oral meq PO 08/21/23 12/12/23 packet Previous Rx's Medication Instructions Recorded lidocaine HCl 2 % mucosal solution 10 ml mucous membrane TID 5 days 08/10/23 (Lidocaine Viscous) #100 mL diazepam 5 mg tablet 2.5 mg (1/2 x 5 mg) PO TID PRN 11/14/23 anxiety 30 days #45 tabs diclofenac sodium 1 % topical gel 2 g topical QID #100 grams 11/14/23 gabapentin 800 mg tablet 800 mg PO TID 30 days #90 tabs 11/14/23 levothyroxine 25 mcg tablet See Rx Instructions .Route 11/14/23 .COMPLEX #90 tabs lidocaine 5 % topical patch 1 patch topical DAILY #30 ea 11/14/23 lisinopril 10 mg tablet 10 mg PO BID #180 tabs 11/14/23 mesalamine 1.2 gram tablet,delayed 4.8 g (4 x 1.2 gram) PO DAILY 11/14/23 release (Lialda) crohns 90 days #360 tabs oxcarbazepine 600 mg tablet 600 mg PO BID #60 tabs 11/14/23 pantoprazole 40 mg tablet,delayed 40 mg PO BID #90 tabs 11/14/23 release (Protonix) quetiapine 200 mg tablet 200 mg PO HS #30 tabs 11/14/23 ondansetron 8 mg disintegrating 8 mg PO Q12H PRN nausea and 11/16/23 tablet vomiting #30 tabs fluticasone fur. 100 mcg-umeclid 1 inh inhalation DAILY #60 ea 11/20/23 62.5 mcg-vilant 25 mcg inhalat.powder (Trelegy Ellipta) albuterol sulfate 90 mcg/actuation See Rx Instructions .Route 11/22/23 aerosol inhaler .COMPLEX #8.5 grams ipratropium 0.5 mg-albuterol 3 mg 3 ml inhalation Q8H PRN shortness 11/22/23 (2.5 mg base)/3 mL nebulization of breath or wheezing #180 mL soln ondansetron 4 mg disintegrating 4 mg PO Q6H PRN nausea and 01/04/24 tablet vomiting #10 tabs sulfamethoxazole 800 1 tab PO BID 7 days #14 tabs 01/04/24 mg-trimethoprim 160 mg tablet (Bactrim DS) Allergies Allergy/AdvReac Type Severity Reaction Status Date / Time meperidine [From Demerol] Allergy Mild Hives Verified 12/12/23 11:40 [facility] Dis[facility]: The information contained in this section may have been updated after the patient was seen, as this information can be updated by other users. Medical History delivery delivered History of kidney stones Perianal fissure Hypothyroid Recent TSH was normal. Will follow. Social History Smoking Status: Current every day smoker tobacco type: e-cigarettes alcohol intake: current alcohol intake frequency: a few times a week substance use type: former substance user current occupational status: unemployed Travel in the last 8 weeks: None household members: family housing: house current occupational exposures/hazards: No caffeine: Yes ROS Obtained: Yes Systems reviewed as appropriate & no additional complaints except as documented Physical Exam General General appearance: alert and in no apparent distress Respiratory Respiratory exam: Present normal lung sounds bilaterally Cardiovascular Cardiovascular exam: Present normal rhythm, tachycardia and normal heart sounds Abdominal Exam Abdominal exam: Present soft, tenderness (Diffusely everywhere on exam) and normal bowel sounds; Absent guarding, rebound or rigidity Neurological Exam Neurological exam: Present alert and oriented X3 Medical Decision Making Medical Records Medical records reviewed: Yes I reviewed the patient's medical records. Jan Inquiry Pt receiving controlled substance: No Vital Signs: 01/04/24 17:50 Temperature 98.2 F Temperature Source Oral Pulse Rate [Left Radial] 110 H Respiratory Rate 19 Blood Pressure [Right Arm] 146/111 H Blood Pressure Mean [Right Arm] 122 02 Sat by Pulse Oximetry 95 Oxygen Delivery Method Room Air Lab Data Lab results reviewed: Yes I reviewed the patient's lab results. Lab Results 01/04/24 17:57: Urine Color Dark yellow, Urine Appearance Cloudy, Urine pH 6.5, Ur Specific [place] 1.010, Urine Protein Trace, Urine Glucose (UA) Trace, Urine Ketones Negative, Urine Blood 2+, Urine Nitrate Negative, Urine Bilirubin 1+ A, Urine Urobilinogen >=8.0, Ur Leukocyte Esterase 1+ A, Urine RBC 5-10, Urine WBC 3-5, Ur Squamous Epith Cells 50-100, Urine Bacteria 3+, Urine Opiates Screen Negative, Urine Methadone Screen Negative, Ur Barbituates Screen Negative, Ur Phencyclidine Scrn Negative, Ur Amphetamines Screen Negative, U Benzodiazepines Scrn Positive H, Urine Cocaine Screen Negative, U Marijuana (THC) Screen Negative 01/04/24 18:30: WBC 5.6, RBC 4.99, Hgb 15.4, Hct 44.1, MCV 88.4, MCH 30.9, MCHC 35.0, RDW 14.0, Plt Count 162, MPV 7.0 L, Neut % (Auto) 63.1, Lymph % (Auto) 30.2, [place] % (Auto) 4.8, Eos % (Auto) 1.1, Baso % (Auto) 0.8, Neut # (Auto) 3.5, Lymph # (Auto) 1.7, [place] # (Auto) 0.3, Eos # (Auto) 0.1, Baso # (Auto) 0.1, Sodium 137, Potassium 3.4 L, Chloride 99, Carbon Dioxide 28, Anion Gap 13.4, BUN 12, Creatinine 0.60, Estimated Creat Clear 167, Estimated GFR 109, Est GFR ( Amer) 132, Glucose 107 H, Lactate 1.5, Calcium 9.1, Magnesium 2.1, Total Bilirubin 1.3, AST 28, ALT 21, Alkaline Phosphatase 76, Total Protein 8.7 H, Albumin 4.8, Globulin 3.9 H, Albumin/Globulin Ratio 1.2, Lipase 107, Serum HCG, Qual Negative 01/04/24 18:30 01/04/24 18:30 Orders (Tests/Meds): ED MEDICATIONS Discontinued Medications Generic Name Dose Route Start Last Admin Trade Name Albertq PRN Reason Stop Dose Admin Acetaminophen 1,000 mg 01/04/24 18:04 01/04/24 18:36 Acetaminophen 1,000mg/100ml Vial IV 01/04/24 18:05 1,000 mg ONCE ONE Administration Lactated Ringer's 1,000 mls @ 999 mls/hr 01/04/24 18:04 01/04/24 18:36 Lactated Ringer's 1000 Ml Bag IV 01/04/24 19:04 999 mls/hr .Q1H1M ONE Administration Ketorolac Tromethamine 15 mg 01/04/24 18:04 01/04/24 18:36 Ketorolac 30mg/Ml Vial IV 01/04/24 18:05 15 mg ONCE ONE Administration Ondansetron HCl 4 mg 01/04/24 18:05 01/04/24 18:36 Ondansetron 4mg/2ml Vial IV 01/04/24 18:06 4 mg ONCE ONE Administration Ondansetron HCl 4 mg 01/04/24 18:23 01/04/24 18:25 Ondansetron 4mg Odt SL 01/04/24 18:24 4 mg ONCE ONE Administration ORDERS Category Date Time Status CBC w/Auto Diff [Complete Blood Count Auto Diff] Stat Lab 01/04/24 18:30 Completed CMP [Comprehensive Metabolic Panel] Stat Lab 01/04/24 18:30 Completed HCG Qualitative, Serum Stat Lab 01/04/24 18:30 Completed Lactic Acid Stat Lab 01/04/24 18:30 Completed Lipase Stat Lab 01/04/24 18:30 Completed Magnesium Stat Lab 01/04/24 18:30 Completed UA [Urinalysis and Microscopic] Stat Lab 01/04/24 17:57 Completed UDS [Drug Screen,Urine] Stat Lab 01/04/24 17:57 Completed Urine Culture Stat Micro 01/04/24 17:57 Received Medical Decision Narrative: In summary patient is a 3-year-old female who presents to the emergency department for evaluation of multiple complaints including abdominal pain constipation and vaginal burning and vaginal discharge. Patient is hypertensive with a blood pressure 146/111 with a heart rate of 110 upon arrival, afebrile. Physical exam is remarkable for diffuse mild abdominal tenderness to palpation without rebound or guarding or rigidity. Bowel sounds normoactive.. Differential diagnosis includes sexually transmitted disease versus bacterial vaginosis versus yeast infection versus constipation versus gastroenteritis versus appendicitis versus bowel obstruction etc. Initial workup will be conducted with hematologic labs urinalysis urine . Initial interventions include Toradol Tylenol crystalloid and Zofran. Initial workup reviewed by me and her hematologic labs are nonactionable however patient's urine is contaminated but given her symptoms we will go ahead and treat with Bactrim and await urine culture results.. Upon repeat evaluation patient had moderate resolution of her symptoms. Given this patient is appropriate for discharge with follow-up with her PCP and NATURALIZATION EXAMINER recommended. Critical Care Critical Care Time Critical Care Time: No
[2024-01-04 18:10] LABS: Microscopic, Urine URINE MICROSCOPIC (MICROSCOPIC)
--- NOTE | 2024-01-04 18:12 | ECG_ITS ---
APPROVED REPORT Exam: Resting ECG HR:109 bpm ECG Measurements Heart Rate 109 AXES [place] 150 P 70 QRSd 75 QRS 83 QT 318 T 60 QTc 382 Conclusion SINUS TACHYCARDIA NONSPECIFIC T-WAVE ABNORMALITY ABNORMAL RHYTHM ECG UNCONFIRMED REPORT Electronically signed by : Kulwinder Mckenna, 01/04/2024 23:04:15
[2024-01-04 18:21] LABS: Appearance,Urine CLOUDY (Clear); Blood, Urine 2+ (Negative); Glucose,Urine (UA) TRACE (Negative); Ketones,Urine Negative (Negative); Leukocyte Esterase,Urine 1+ (Negative); Nitrate,Urine Negative (Negative); PH,Urine 6.5 (5.0-8.5); Protein,Urine TRACE (Negative); Urobilinogen,Urine >=8.0 EU/dl (0.2)
[2024-01-04 18:22] LABS: Color,Urine Dark Yellow (Yellow)
[2024-01-04 18:25] LABS: Bilirubin,Urine 1+ (Negative)
[2024-01-04] MEDS: ONDANSETRON 4MG ODT 4 MG SL (18:25)
[2024-01-04] MEDS: ONDANSETRON 4MG/2ML VIAL 4 MG IV (18:36)
[2024-01-04] MEDS: LACTATED RINGERS 1000ML 1,000 ML 999 ML IV (18:36)
[2024-01-04] MEDS: ACETAMINOPHEN 1,000MG/100ML VIAL 1000 MG IV (18:36)
[2024-01-04] MEDS: KETOROLAC 30MG/ML VIAL 15 MG IV (18:36)
[2024-01-04 18:40] LABS: Benzodiazepines Screen,Urine Positive ng/ml (<200)
[2024-01-04 18:41] LABS: Amphetamine/Metha Screen,Urine Negative ng/ml (<1000); Bacteria,Urine 3+ /lpf; Barbiturates Screen,Urine Negative ng/ml (<200); Squamous Epithelial Cell,Urine 50-100 #/hpf (0-5)
[2024-01-04 18:42] LABS: Cannabinoid Screen,Urine Negative ng/ml (<50)
[2024-01-04 18:43] LABS: Cocaine Screen,Urine Negative ng/ml (<300); Methadone Screen,Urine Negative ng/ml (<300)
[2024-01-04 18:44] LABS: Opiate Screen,Urine Negative ng/ml (<300)
[2024-01-04 18:45] LABS: Phencyclidine Screen,Urine Negative ng/ml (<25)
[2024-01-04 19:00] VITALS: BP 140/85; PULSE 100; O2SAT 99
--- NOTE | 2024-01-04 19:00 | PC.NURSE ---
Report received from previous shift. Per report, Dr. Mckenna had to place u/s guided IV and labs sent.
--- NOTE | 2024-01-04 19:18 | PC.NURSE ---
Labs delayed to be stuck in transport tube. Tube was able to be retrieved and sent to lab at this time and were received. Ben Shannon PA-C & pt are aware of delay
[2024-01-04 19:20] LABS: Basophils # 0.1 K/mm3 (0-0.2); Basophils % 0.8 % (0.1-2.0); Eosinophils # 0.1 K/mm3 (0.0-0.4); Eosinophils % 1.1 % (0.1-12.0); Hematocrit 44.1 % (37.0-47.0); Hemoglobin 15.4 g/dL (12.2-16.2); Lymphocytes # 1.7 K/mm3 (0.7-4.5); Lymphocytes % 30.2 % (10-50); Mean Corpuscular Hemoglobin 30.9 pg (27.0-31.2); Mean Corpuscular Volume 88.4 fl (81-99); Monocytes # 0.3 K/mm3 (0.1-1.0); Monocytes % 4.8 % (1.7-9.3); Neutrophils # 3.5 K/mm3 (1.8-7.8); Neutrophils % 63.1 % (37.0-80.0); Platelet Count 162 K/mm3 (142-424); Red Blood Count 4.99 M/mm3 (4.20-5.40); White Blood Count 5.6 K/mm3 (4.8-10.8)
[2024-01-04 19:35] LABS: Chloride 99 mmol/L (98-107); Potassium 3.4 mmoL/L (3.5-5.1); Sodium 137 mmol/L (136-145)
[2024-01-04 19:37] LABS: Blood Urea Nitrogen 12 mg/dl (7-17); Creatinine Clearance Estimated 167 mL/min (50-200); Estimated Glomerular Filt Rate 109 ml/min (>60); GFR (African American) 132 ML/MIN (>60)
[2024-01-04 19:38] LABS: Alanine Aminotransferase 21 U/L (12-78); Albumin Level 4.8 g/dl (3.5-5.0); Albumin/Globulin Ratio 1.2 (1.1-1.8); Alkaline Phosphatase 76 U/L (38-126); Anion Gap 13.4 mEq/L (5-15); Aspartate Amino Transferase 28 U/L (14-36); Bilirubin,Total 1.3 mg/dl (0.2-1.3); Calcium 9.1 mg/dl (8.4-10.2); Carbon Dioxide 28 mmol/L (22.0-30.0); Globulin 3.9 g/dL (1.3-3.2); Glucose 107 mg/dl (74-100); Total Protein,Serum 8.7 g/dl (6.3-8.2)
[2024-01-04 19:39] LABS: Lactic Acid 1.5 mmol/L (0.7-2.1); Lipase 107 U/L (23-300); Magnesium 2.1 mg/dl (1.6-2.3)
[2024-01-04 19:47] LABS: HCG Qualitative, Serum Negative (Negative)
[2024-01-04 19:53] VITALS: BP 132/79; PULSE 92; RESP 17; TEMP 36.8; O2SAT 100
--- NOTE | 2024-01-04 19:53 | PC.NURSE ---
Ben Shannon PA-C at bedside
== END 2024-01-04 20:03 | disposition home or self-care (01) ==
PROVIDERS: Physician Assistant; Emergency Provider Student in an Organized Health Care Education/Training Program; PCP Internal Medicine
DX: N39.0 Urinary tract infection, site not specified (principal); B96.89 Other specified bacterial agents as the cause of diseases classified elsewhere; R10.817 Generalized abdominal tenderness; R00.0 Tachycardia, unspecified; F17.290 Nicotine dependence, other tobacco product, uncomplicated
CPT/HCPCS: 80053; 80307; 81001; 83605; 83690; 83735; 84703; 85025; 87086; 93005; 96361; 96374; 96375; 99284; J0131; J1885; J2405; J7120